=== PATIENT | male | born 1965 ===

== ENCOUNTER 2021-05-20 16:19 | Emergency (ER) | payer OTHER ==
[~2021-05-20] VITALS: Ht 180.3 cm; Wt 90.7 kg
[2021-05-20] MEDS ORDERED: METFORMIN HCL500 MG (16:31)
[2021-05-20] MEDS ORDERED: ZESTRIL40 M1 PO (16:31)
== END 2021-05-20 21:01 | disposition home or self-care (01) ==
LOC: ER 16:19
DX: N20.2 Calculus of kidney with calculus of ureter (principal)